=== PATIENT | male | born 1985 | race African-American/Black ===

== ENCOUNTER 2018-04-11 08:36 | Emergency (ER) | payer OTHER, SELFPAY ==
[2018-04-11] MEDS ORDERED: MECLIZINE HCL 12.5 MG TAB ONE (10:34)
--- NOTE | 2018-04-12 00:58 | EDPHYS ---
Physician Documentation [facility] Name: Alexis Smyth Age: 32 yrs Sex: Male : 1985 Arrival Date: 04/11/2018 Time: 09:30 Bed 19 Private MD: ED Physician Ousmane Hernandez HPI: 04/11 16:51 This 32 yrs old Male presents to ER via Unassigned with complaints of Dizziness. jmm 16:51 The patient presents with dizziness. Onset: The symptoms/episode began/occurred jm acutely, 3 day(s) ago. Modifying factors: The symptoms are alleviated by lying down, the symptoms are aggravated by changing position. Associated signs and symptoms: Pertinent negatives: weakness. The patient has not experienced similar symptoms in the past. This is a 32 year old male with no chronic medical conditions that presents to the ED with acute onset dizziness beginning this past Saturday morning. Patient states symptoms are worsened when he initially gets out of be in the morning and states symptoms decreased in severity throughout the day. Patient complains of mild cough but denies recent cold. Patient denies weakness. Denies chest pain, denies fever. Denies vomiting. . ROS: 16:51 Constitutional: Negative for fever, chills, and weight loss, Cardiovascular: Negative [facility] for chest pain, palpitations, and edema, Respiratory: Negative for shortness of breath, cough, wheezing, and pleuritic chest pain, Abdomen/GI: Negative for abdominal pain, nausea, vomiting, diarrhea, and constipation, Back: Negative for injury and pain, MS/Extremity: Negative for injury and deformity. 16:51 Neuro: Positive for dizziness. 16:51 All other systems are negative. Exam: 16:51 Head/Face: atraumatic. jmm 16:51 Chest/axilla: Normal chest wall appearance and motion. Cardiovascular: Regular rate and rhythm. No edema appreciated Respiratory: Normal respirations, no respiratory distress appreciated 16:51 Constitutional: The patient appears in no acute distress, alert, awake. 16:51 Eyes: Nystagmus: fatigable horizontal nystagmus noted on gaze to the right. 16:51 Neuro: Orientation: is normal, Mentation: is normal, Memory: is normal, Cranial nerves: extraocular movements are intact, Facial palsy and sensory deficits are absent. right lateral nystagmus, Cerebellar function: normal finger to nose testing, Gait: is steady. 16:51 Psych: Behavior/mood is pleasant, cooperative. Vital Signs: 10:40 BP 137 / 81; Pulse 71; Resp 18; Pulse Ox 99% on R/A; Pain 0/10; em MDM: 10:08 Patient medically screened. [facility] 16:51 Data reviewed: vital signs, nurses notes. Counseling: I had a detailed discussion with eran the patient and/or guardian regarding: the historical points, exam findings, and any diagnostic results supporting the discharge/admit diagnosis, the presence of at least one elevated blood pressure reading (>120/80) during this emergency department visit, the need for outpatient follow up, to return to the emergency department if symptoms worsen or persist or if there are any questions or concerns that arise at home. Refusal of service: The patient/guardian displays adequate decision making capability and despite a detailed discussion of alternatives, benefits, risks, and consequences refuses: CT Scan. Administered Medications: 10:30 Drug: Meclizine 50 mg Route: PO; em 10:52 Follow up: Response: No adverse reaction em Disposition: 04/11/18 10:39 Discharged to Home. Impression: Dizziness. - Condition is Stable. - Discharge Instructions: Dizziness. - Prescriptions for Meclizine 25 mg Oral Tablet - take 1 tablet by ORAL route every 8 hours As needed; 30 tablet. - Medication Reconciliation Form, Thank You Letter, Antibiotic Education, Prescription Opioid Use, Work release form form. - Follow up: Rohan Owens MD; When: 2 - 3 days; Reason: Recheck today's complaints, Continuance of care, Re-evaluation by your physician. - Notes: Please follow up with Neurology for further evaluation of your dizziness. Please return to the ED if you develop weakness, worsening dizziness, or any other concerning symptoms. Addendum: 04/14/2018 07:00 Co-signature as Attending Physician, Ousmane Hernandez MD I agree with the assessment and c aly plan of care. Signatures: Ousmane Hernandez MD MD cha Mickail, Joel, PA PA jmm Munoz, Edgar, ENTRY LEVEL BUYER ENTRY LEVEL BUYER em Corrections: (The following items were deleted from the chart) 04/11 10:54 10:39 04/11/2018 10:39 Discharged to Home. Impression: Dizziness. Condition is Stable. em Forms are Medication Reconciliation Form, Thank You Letter, Antibiotic Education, Prescription Opioid Use. Follow up: Rohan Owens; When: 2 - 3 days; Reason: Recheck today's complaints, Continuance of care, Re-evaluation by your physician. eran
--- NOTE | 2018-04-12 00:58 | ER ---
Nurse's Notes [facility] Name: Alexis Smyth Age: 32 yrs Sex: Male : 1985 Arrival Date: 04/11/2018 Time: 09:30 Bed 19 Private MD: Diagnosis: Dizziness Assessment: 04/11 10:40 Reassessment: see paper chart. em 10:40 Reassessment: Patient appears in no apparent distress at this time. Patient and/or em family updated on plan of care and expected duration. Pain level reassessed. Patient is alert, oriented x 3, equal unlabored respirations, skin warm/dry/pink. pt refused CT due to no insurance, provider notified. Vital Signs: 10:40 BP 137 / 81; Pulse 71; Resp 18; Pulse Ox 99% on R/A; Pain 0/10; em ED Course: 09:30 Patient arrived in ED. 10:07 Lupillo Orr PA is PHCP. [facility] 10:07 Ousmane Hernandez MD is Attending Physician. [facility] 10:26 Marcio Villatoro LVN is Primary Nurse. em 10:39 Rohan Owens MD is Referral Physician. [facility] 10:54 No provider procedures requiring assistance completed. Patient did not have IV access em during this emergency room visit. Administered Medications: 10:30 Drug: Meclizine 50 mg Route: PO; em 10:52 Follow up: Response: No adverse reaction em Outcome: 10:39 Discharge ordered by MD. [facility] 10:54 Discharged to home ambulatory. em 10:54 Condition: good 10:54 Discharge instructions given to patient, Instructed on discharge instructions, follow up and referral plans. medication usage, Demonstrated understanding of instructions, Prescriptions given X 1. 10:54 Patient left the ED. em Signatures: Lupillo Orr PA PA Marcio Mott LVN LVN em Devon Hayes RN RN
== END 2018-04-11 10:54 | disposition home or self-care (01) ==
LOC: ER 08:36
DX: R42 Dizziness and giddiness (principal)
CPT/HCPCS: 99283